=== PATIENT | male | born 2000 | race Caucasian/White ===

== ENCOUNTER 2020-08-11 12:57 | Emergency (ER) | payer OTHER ==
[~2020-08-11] VITALS: Ht 177.8 cm; Wt 96.5 kg
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
[2020-08-11 16:45] VITALS: BP 110/69
== END 2020-08-11 17:06 | disposition home or self-care (01) ==
LOC: M ED 12:57
DX: S01.111A Laceration without foreign body of right eyelid and periocular area, initial encounter (principal); S62.641A Nondisplaced fracture of proximal phalanx of left index finger, initial encounter for closed fracture; Y04.0XXA Assault by unarmed brawl or fight, initial encounter; Y92.133 Barracks on military base as the place of occurrence of the external cause; Y93.89 Activity, other specified; Y99.8 Other external cause status; F17.200 Nicotine dependence, unspecified, uncomplicated